=== PATIENT | female | born 1990 | race African-American/Black ===

== ENCOUNTER 2023-02-25 14:58 | Emergency (ER) | payer SELFPAY ==
[2023-02-25] MEDS ORDERED: Ondansetron PF 4 MG/2 ML Vial ONE (15:15)
[2023-02-25] MEDS ORDERED: Dicyclomine 20 MG/2 ML VIAL ONE (15:16)
[2023-02-25] MEDS ORDERED: Haloperidol Lactate 5 MG/ML VIAL ONE (15:31)
[2023-02-25 15:34] LABS: #Monocytes 0.7 thou/uL (0.11-0.59); #Neutrophils 8.6 thou/uL (1.40-6.50); %Basophils 0.3 % (0.0-1.0); %Eosinophils 0.2 % (0.0-10.0); %Monocytes 6.3 % (0.0-10.0); %Neutrophils 72.9 % (42.0-75.0); Hematocrit 39.2 % (36.0-47.0); Hemoglobin 13.8 g/dL (12.0-16.0); Mean Corpuscular HGB CONC 35.2 g/dL (32.0-36.0); Mean Corpuscular Hemoglobin 31.4 pg (27.0-31.0); Mean Corpuscular Volume 89.1 fl (78.0-98.0); Mean Platelet Volume 9.9 fL (7.4-10.4); Platelet Count 255 10x3/uL (130-400); RBC Distribution Width 12.5 % (11.5-14.5); White Blood Cell (WBC) Count 11.8 10x3/uL (4.8-10.8)
[2023-02-25 15:57] LABS: ALT (SGPT) 17 U/L (8-55); AST (SGOT) 18 U/L (5-34); Albumin 4.8 g/dL (3.5-5.0); Alkaline Phosphatase 66 U/L (40-110); Anion Gap 20 mmol/L (10-20); BUN (Urea Nitrogen) 12 mg/dL (7.0-18.7); Bilirubin, Total 1.7 mg/dL (0.2-1.2); Calc. Creatinine Clearance 0 mL/min (70-130); Calcium 10.4 mg/dL (7.8-10.44); Carbon Dioxide 16 mmol/L (22-29); Chloride 105 mmol/L (98-107); Estimated GFR 84; Globulin 2.8 g/dL (2.4-3.5); Glucose 128 mg/dL (70-105); Lipase Less than 4 U/L (8-78); Magnesium 1.5 mg/dL (1.6-2.6); Potassium 2.9 mmol/L (3.5-5.1); Protein, Total 7.6 g/dL (6.0-8.3); Sodium 138 mmol/L (136-145)
[2023-02-25 16:02] LABS: BHCG - Serum Negative (NEGATIVE); Pregs Control Background? CLEAR/WHITE (CLR/WHITE); Pregs Control Bar Appear? YES (CONTROL BAR)
[2023-02-25 16:09] LABS: Bacteria/HPF None Seen HPF (None Seen); Bilirubin Negative (Negative); Blood, Urine Negative (Negative); CAUTI Indications for Culture Pelvic or flank pain; Clarity Clear (Clear); Glucose, Urine (Dipstick) Normal (Negative); Ketone, Urine Greater than 150 mg/dL (Negative); Leukocyte Negative Leu/uL (Negative); Nitrite Negative (Negative); Protein, Urine (Dipstick) 70 mg/dL (Neg-Trace); RBC/HPF 0-3 HPF (0-3); Specific Gravity, Urine 1.026 (1.002-1.036); Squamous Epithelial 0-3 HPF (0-3); Urobilinogen Normal mg/dL (Less than 2); WBC/HPF 0-3 HPF (0-3); pH, Urine 8.5 (5.0-9.0)
[2023-02-25 16:11] LABS: Urine Culture Reflex No No
[2023-02-25] MEDS ORDERED: Potassium Bicarbonate/Cit Ac 20 MEQ TAB ONE (16:19)
[2023-02-25] MEDS ORDERED: Magnesium 2 GM/50 ML BAG (IN WATER) ONE (16:21)
== END 2023-02-25 17:29 | disposition home or self-care (01) ==
LOC: ERS 14:58
DX: R11.2 Nausea with vomiting, unspecified (principal); F12.90 Cannabis use, unspecified, uncomplicated; E83.42 Hypomagnesemia; E87.6 Hypokalemia; F17.210 Nicotine dependence, cigarettes, uncomplicated
CPT/HCPCS: 80053; 81001; 83690; 83735; 84703; 85025; 96361; 96365; 96372; 96375; J1630; J2405; J3475